=== PATIENT | female | born 1960 | race Caucasian/White ===

== ENCOUNTER 2016-11-13 08:36 | Emergency (ER) | payer OTHER, SELFPAY ==
[2016-11-13] MEDS ORDERED: Sodium Chloride 0.9% 1,000 ML ONE (08:48)
[2016-11-13] MEDS ORDERED: Ondansetron HCl/PF 4 MG/2 ML Vial ONE ×4 (09:00→11:28)
[2016-11-13] MEDS ORDERED: Metoprolol Tartrate 5 MG/5 ML VIAL ONE ×2 (09:17→09:30)
[2016-11-13 09:36] LABS: Band 4 % (5-11); Hematocrit 59.4 % (36.0-47.0); Mean Platelet Volume 8.2 fL (7.4-10.4); Neutrophil 71 % (42-75); Red Blood Cell (RBC) Count 6.79 mill/uL (4.20-5.40); White Blood Cell (WBC) Count 14.6 thou/uL (4.8-10.8)
[2016-11-13 09:38] LABS: ALT (SGPT) 28 U/L (0-55); AST (SGOT) 20 U/L (5-34); Alkaline Phosphatase 76 U/L (40-150); Anion Gap 19 mmol/L (10-20); BUN (Urea Nitrogen) 13 mg/dL (9.8-20.1); Bilirubin, Total 1.1 mg/dL (0.2-1.2); Calc. Creatinine Clearance 0 mL/min (70-130); Calcium 9.7 mg/dL (7.8-10.44); Carbon Dioxide 25 mmol/L (22-29); Chloride 99 mmol/L (98-107); Estimated GFR-MDRD 56; Globulin 3.9 g/dL (2.4-3.5); Protein, Total 8.8 g/dL (6.0-8.3)
[2016-11-13 09:40] LABS: Troponin I 0.012 ng/mL (< 0.028)
--- NOTE | 2016-11-13 10:11 | CT ---
NONCONTRAST HEAD CT HISTORY: Headache. Nausea and vomiting. COMPARISON: None. TECHNIQUE: A noncontrast head CT is performed from the skull base to the skull vertex. FINDINGS: No parenchymal hemorrhage. No extraaxial hematoma. No midline shift. The basilar cisterns are pat ent. Brain volume is age appropriate. Cortical valadez white matter differentiation is preserved. The ventricles and sulci are patent and symmetric. Minimal chronic small vessel ischemic changes of the white matter. The calvarium is intact. Adequate aeration of the sinuses and mastoid air cells. IMPRESSION: No acute intracranial process. POS: [facility]
[2016-11-13] MEDS ORDERED: Sodium Chloride 0.9% 500 ML ONE (10:59)
[2016-11-13] MEDS ORDERED: Mag-Al Plus 1200 MG/1200 MG/120 MG/30 ML UDCUP ONE (11:27)
[2016-11-13] MEDS ORDERED: Lidocaine Viscous Sol 2% 15 ml UD Cup ONE (11:28)
[2016-11-13] MEDS ORDERED: Promethazine HCl 25 MG/ML VIAL ONE (11:47)
[2016-11-13 11:56] LABS: Troponin I 0.011 ng/mL (< 0.028)
--- NOTE | 2016-11-13 11:58 | ERRECORD ---
[facility] EMERGENCY RECORD HPI HEADACHE (08:51 SHAN) CHIEF COMPLAINT: Patient presents for evaluation of headache, severe headache with vomiting since yesterday, hx of doing something very similar to this 25 years ago with hypertension, on 10 mg amlodipine daily but vomitin. HISTORIAN: History provided by patient, History provided by patient's spouse, Severe headache since yesterday. SEVERITY: Maximum severity of symptoms moderate, Currently symptoms are severe. ROS (08:53 SHAN) CONSTITUTIONAL: Negative constitutional review of systems. EYES: Negative eye review of systems. ENT: Negative ears, nose, throat review of systems. CARDIOVASCULAR: Negative cardiovascular review of systems. RESPIRATORY: Negative respiratory review of systems. GI: Historian reports nausea, reports vomiting. GENITOURINARY FEMALE: Negative genitourinary review of systems. MUSCULOSKELETAL: Negative musculoskeletal review of systems. SKIN: Negative skin review of systems. NEUROLOGIC: Negative neurologic review of systems, severe headache, bilateral frontal and with associated nausea. ENDOCRINE: Negative endocrine review of systems. NOTES: All systems reviewed, negative except as described above. PAST MEDICAL HISTORY (08:45 BDON) MEDICAL HISTORY: Notes: headache, Flu vaccine not up to date, Tetanus not up to date, Past medical history includes history of hypertension, which has been treated. FEMALE SURGICAL HISTORY: Surgical history of tubal ligation. PSYCHIATRIC HISTORY: No previous psychiatric history. SOCIAL HISTORY: Patient drinks socially, Patient denies drug use, Patient is a former tobacco user, smoked cigarettes, Patient quit smoking in the past year, Lives at home, alone. KNOWN ALLERGIES codeine sulfate: - headache, nausea CURRENT MEDICATIONS (08:47 BDON) amLODIPine: TABLET : Strength - 10 mg : ORAL Patient Dose: once a day. VITAL SIGNS VITAL SIGNS: BP: 209/84, Pulse: 89, Resp: 20, Temp: 98.5 (Oral), Pain: 10, O2 sat: 100, Time: 11/13/2016 09:04. (09:04 BDON) &a-1R&a+25V*p+0X*e0913G*c202B*c15G*c2P*p-0X&a-25V&a+1R Name: Brittnee Oseguera : 1960 F56 MedRec: [id number] AcctNum: [id number] Prepared: Katelyn Nov 13, 2016 13:29 by Interface Page 1 of 4 pMD [facility] EMERGENCY RECORD BP: 228/89, Pulse: 75, Resp: 18, O2 sat: 97 on Room Air, Time: 11/13/2016 09:30. (09:30 EPIE) BP: 226/96, Pulse: 70, Resp: 18, O2 sat: 91 on Room Air, Time: 11/13/2016 09:50. (09:50 EPIE) BP: 214/81, Pulse: 76, Resp: 18, Pain: 8, O2 sat: 96 on Room Air, Time: 11/13/2016 10:00. (10:00 EPIE) BP: 187/72, Pulse: 72, Resp: 17, O2 sat: 97 on Room Air, Time: 11/13/2016 10:15. (10:15 EPIE) BP: 199/85, Pulse: 72, Resp: 18, O2 sat: 98 on Room Air, Time: 11/13/2016 10:30. (10:30 EPIE) BP: 173/86, Pulse: 69, Resp: 18, Pain: 4, O2 sat: 98, Time: 11/13/2016 11:15. (11:15 BDON) BP: 193/115, Pulse: 90, Resp: 18, O2 sat: 97 on Room Air, Time: 11/13/2016 12:00. (12:00 EPIE) PHYSICAL EXAM (08:53 SHAN) CONSTITUTIONAL: Patient afebrile, Pulse normal, Blood pressure normal, Respiratory rate normal, Patient appears non toxic, Patient appears in marked acute pain, Patient alert and oriented to person, place and time. Specifically denies chest pain. HEAD: Head exam included findings of head atraumatic, normocephalic. EYES: Eye exam normal, Eye exam included findings of eyelids normal to inspection, Pupils equally round and reactive to light, Extraocular muscles intact. ENT: ENT exam normal, Pharynx exam normal, Uvula exam normal, Tonsil exam normal. NECK: Neck exam normal, Neck exam included findings of normal range of motion, Trachea midline. RESPIRATORY CHEST: Respiratory and chest exam normal, Chest exam included findings of chest movement symmetrical, Chest expansion equal, Percussion normal. CARDIOVASCULAR: Cardiovascular assessment normal, Cardiovascular exam included findings of heart rate regular rate and rhythm, Heart sounds normal. ABDOMEN FEMALE: Abdominal exam normal, Abdominal exam included findings of abdomen nontender, Bowel sounds normal. BACK: Back exam normal. UPPER EXTREMITY: Upper extremity exam normal, Upper extremity exam included findings of inspection normal, Range of motion normal. LOWER EXTREMITY: Lower extremity exam normal, Lower extremity exam included findings of inspection normal, Range of motion normal. NEURO: Neuro exam normal. SKIN: Skin exam normal. PSYCHIATRIC: Psychiatric exam normal, Psychiatric exam included findings of patient oriented to person place and time, Normal affect, Judgment normal, Insight normal. MEDICATION ADMINISTRATION SUMMARY &a-1R&a+25V*p+0X*v2197M*c202B*c15G*c2P*p-0X&a-25V&a+1R Name: Brittnee Oseguera : 1960 F56 MedRec: [id number] AcctNum: [id number] Prepared: Katelyn Nov 13, 2016 13:29 by Interface Page 2 of 4 pMD [facility] EMERGENCY RECORD Drug Name: hydrALAZINE injection, Dose Ordered: 10 mg, Route: IV Push, Status: Given, Time: 12:12 11/13/2016, Drug Name: Phenergan injection, Dose Ordered: 12.5 mg, Route: IV Push, Status: Given, Time: 11:52 11/13/2016, Drug Name: Zofran intravenous, Dose Ordered: 4 mg, Route: IV Push, Status: Given, Time: 11:42 11/13/2016, Drug Name: GI COCKTAIL, Dose Ordered: 40 mL, Route: Oral, Status: Given, Time: 11:32 11/13/2016, Drug Name: aspirin oral, Dose Ordered: 1 tab(s), Route: Oral, Status: Given, Time: 11:32 11/13/2016, Drug Name: hydrALAZINE injection, Dose Ordered: 10 mg, Route: IV Push, Status: Given, Time: 11:06 11/13/2016, Drug Name: Normal Saline, Dose Ordered: 30 mL, Route: IV Fluid Infusion, Status: Given, Time: 11:00 11/13/2016, Drug Name: morphine (PF) intravenous, Dose Ordered: 4 mg, Route: IV Push, Status: Given, Time: 10:51 11/13/2016, Drug Name: hydrALAZINE injection, Dose Ordered: 10 mg, Route: IV Push, Status: Given, Time: 09:56 11/13/2016, Drug Name: Lopressor intravenous, Dose Ordered: 5 mg, Route: IV Push, Status: Given, Time: 09:34 11/13/2016, Drug Name: Lopressor intravenous, Dose Ordered: 5 mg, Route: IV Push, Status: Given, Time: 09:25 11/13/2016, Drug Name: Zofran intravenous, Dose Ordered: 4 mg, Route: IV Push, Status: Given, Time: 09:25 11/13/2016, Drug Name: morphine (PF) intravenous, Dose Ordered: 4 mg, Route: IV Push, Status: Given, Time: 09:11 11/13/2016, Drug Name: Normal Saline, Dose Ordered: 1 L, Route: IV Fluid Infusion, Status: Given, Time: 09:10 11/13/2016, Drug Name: Zofran intravenous, Dose Ordered: 4 mg, Route: IV Push, Status: Given, Time: 09:09 11/13/2016, Detailed record available in Medication Service section. DOCTOR NOTES TEXT: Adult female adm with severe right sided headache; hx of migraine but not active in some time; had a similar episode about 20 years ago. Also with chronic hypertension. On amlodipine 10 mg po daily but vomited up her dose today. (10:46 OLGA) When patient rolled over, developed some chest pain, repeat ekg and enzymes ordered; ekg good. Ordered triple mix and aspirin. Discussed with customer solutions representative local provider, he agrees that she should be observed but feels it should be where consultants are available. (11:14 OLGA) Dr. Be is accepting, at [place]. Discussed labs and meds. (11:39 OLGA) Also discussed question of some degree of polycythemia with patient and physician. (13:21 OLGA) DATA REVIEWED: Lab data reviewed, Xray data reviewed, Reviewed EKG. (11:39 OLGA) Lab data reviewed, Xray data reviewed, Reviewed EKG. (13:21 OLGA) &a-1R&a+25V*p+0X*x9270S*c202B*c15G*c2P*p-0X&a-25V&a+1R Name: Brittnee Oseguera : 1960 F56 MedRec: [id number] AcctNum: [id number] Prepared: Katelyn Nov 13, 2016 13:29 by Interface Page 3 of 4 pMD [facility] EMERGENCY RECORD PROBLEM LIST No recorded problems DIAGNOSIS (11:41 SHAN) FINAL: PRIMARY: hypertensive emergency, ADDITIONAL: atypical chest pain, hx of migraine and chronic hypertension, severe headache and nausea. PRESCRIPTION No recorded prescriptions DISPOSITION PATIENT: Disposition Type: Transfer, Disposition: Transfer to [facility]. (11:41 OLGA) Patient left the department. (12:31 THEODORE) Rojas: BEBE=NADEEM Ryan, Shiela JAIMES=NADEEM Moulton, Trin[place] ESPINOZA=MD Billy, Don &a-1R&a+25V*p+0X*k9714Q*c202B*c15G*c2P*p-0X&a-25V&a+1R Name: Oseguera Brittnee A : 1960 F56 MedRec: [id number] AcctNum: [id number] Prepared: Katelyn Nov 13, 2016 13:29 by Interface Page 4 of 4 pMD MTDD
--- NOTE | 2016-11-13 11:59 | PICIS ---
[facility] EMERGENCY RECORD TRIAGE (08:39 BDON) TRIAGE NOTES: Worst headache ever. (08:39 BDON) PATIENT: NAME: Brittnee Oseguera, AGE: 56, GENDER: female, : Mon1960, TIME OF GREET: Sun Nov 13, 2016 08:36, PREFERRED LANGUAGE: Malian, ETHNICITY: Not or , ECODE BILLING MAP: [facility], SSN: [id number], Zip Code: [address], KG WEIGHT: 74.84, PHONE: , , , PERSON ID: [id number], PCP: Michelle RAI LUKE. (08:39 BDON) COMPLAINT: POSSIBLE CARDIAC ISSUE,REALLY BAD HEADACHE. (08:39 BDON) ADMISSION: URGENCY: 2 Emergent, ADMISSION SOURCE: Home, TRANSPORT: Walk-in, BED: TRIAGE. (08:39 BDON) ASSESSMENT: Assessment: Worse headache of life, bilateral temporal and forehead pain, happened about 25 years ago but was due to hypertension. Vomited up hypertension medication, Symptoms began yesterday. (08:45 BDON) LMP: LMP: Menopause. (08:45 BDON) TREATMENTS IN PROGRESS: Treatments given Prehospital: none. (08:45 BDON) PROVIDERS: TRIAGE NURSE: Shiela Rayn RN. (08:39 BDON) KNOWN ALLERGIES codeine sulfate: - headache, nausea CURRENT MEDICATIONS (08:47 BDON) amLODIPine: TABLET : Strength - 10 mg : ORAL Patient Dose: once a day. VITAL SIGNS VITAL SIGNS: BP: 209/84, Pulse: 89, Resp: 20, Temp: 98.5 (Oral), Pain: 10, O2 sat: 100, Time: 11/13/2016 09:04. (09:04 BDON) BP: 228/89, Pulse: 75, Resp: 18, O2 sat: 97 on Room Air, Time: 11/13/2016 09:30. (09:30 EPIE) BP: 226/96, Pulse: 70, Resp: 18, O2 sat: 91 on Room Air, Time: 11/13/2016 09:50. (09:50 EPIE) BP: 214/81, Pulse: 76, Resp: 18, Pain: 8, O2 sat: 96 on Room Air, Time: 11/13/2016 10:00. (10:00 EPIE) BP: 187/72, Pulse: 72, Resp: 17, O2 sat: 97 on Room Air, Time: 11/13/2016 10:15. (10:15 EPIE) BP: 199/85, Pulse: 72, Resp: 18, O2 sat: 98 on Room Air, Time: 11/13/2016 10:30. (10:30 EPIE) BP: 173/86, Pulse: 69, Resp: 18, Pain: 4, O2 sat: 98, Time: 11/13/2016 11:15. (11:15 BDON) BP: 193/115, Pulse: 90, Resp: 18, O2 sat: 97 on Room Air, Time: 11/13/2016 12:00. (12:00 EPIE) NURSING ASSESSMENT: FALL RISK (11:32 EPIE) &a-1R&a+25V*p+0X*q1355R*c202B*c15G*c2P*p-0X&a-25V&a+1R Name: Brittnee Oseguera : 1960 F56 MedRec: [id number] AcctNum: [id number] Prepared: Katelyn Nov 13, 2016 13:29 by Interface Page 1 of 14 pMD [facility] EMERGENCY RECORD FALL RISK: Fall risk assessment findings include: no history of falls (0), No bed rest greater than 2 days (0), No use of level of consciousness altering agents with mentation or cognitive changes (0), Change in blood pressure (1), No sensory deficits (0), Impaired mobility (3), Neurologic diagnosis (3), No elimination problems (0), No confusion (0), Total score 7, Fall risk. NURSING ASSESSMENT: NEURO (08:50 BDON) GCS: (6) Obeying command:, (5) Orientated:, (4) Spontaneous eye opening., Result: 15. CONSTITUTIONAL: Patient arrives, via hospital wheelchair, History obtained from, family member: , Patient appears, in distress due to pain, Patient cooperative, Patient alert, Oriented to person, place and time, Skin warm, Skin dry, Skin, pale in color. PAIN: to the frontal region, to the left orbit, to the right orbit, to the left parietal region, to the right parietal region, Pain level 10 Hurts Worst, using faces pain scoring. NEURO: Able to close eyes, Face symmetrical, Speech normal, no facial numbness, no swelling, Associated with dizziness described as, Associated with vomiting, currently. ENT: no complaint of congestion. SAFETY: Side rails up, Cart/Stretcher in lowest position, Family at bedside, Hospital ID band on, Patient in view of the nursing station. NURSING ASSESSMENT: SKIN (11:32 EPIE) SKIN: Skin assessment findings include skin warm, Skin dry, Skin normal in color, Notes: pt has bilateral nipple piercings. NURSING PROCEDURE: HVAC COMMERCIAL SALESPERSON (09:10 EPIE) HVAC COMMERCIAL SALESPERSON: Patient placed on vehicle monitor technician, Patient placed on non-invasive blood pressure monitor, Patient placed on continuous pulse oximetry, Adult/pediatric oxisensor applied. FOLLOW-UP: After procedure, alarms set and on, After procedure, patient tolerating monitoring. NURSING PROCEDURE: EKG CHART EK lead EKG performed on the left chest, done by Shiela SILVER, first EKG. (09:12 EPIE) EKG indicated for complaint of chest pain, 12 lead EKG performed on the left chest, wrong time placed in "my tasks" 2nd EKG done at 11:11. (11:11 BDON) FOLLOW-UP: After procedure, EKG for interpretation given to Dr. Billy PEMBERTON. (09:12 EPIE) NURSING PROCEDURE: IV (09:15 EPIE) &a-1R&a+25V*p+0X*i0688I*c202B*c15G*c2P*p-0X&a-25V&a+1R Name: Brittnee Oseguera : 1960 F56 MedRec: [id number] AcctNum: [id number] Prepared: Katelyn Nov 13, 2016 13:29 by Interface Page 2 of 14 pMD [facility] EMERGENCY RECORD IV SITE 1: IV established, to the left antecubital, using a 20 gauge catheter, in one attempt, IV site prepped with chloroprep, Saline lock established, Flushed with normal saline (mls): 10, Labs drawn at time of placement, labeled in the presence of the patient and sent to lab. FOLLOW-UP SITE 1: After procedure, no drainage at IV site, After procedure, no swelling at IV site, After procedure, no redness at IV site. NURSING PROCEDURE: NURSE NOTES NURSES NOTES: Notes: Sitting in chair in waiting room, bending over, states worse headache in 25 years which was due to hypertension. at side. Brought to room, [facility] called to take to CT. (08:41 BDON) Notes: continues to have headache, no vomiting but intermittent nausea. (09:15 BDON) Notes: Headache, lights turned off, at bedside, intermittent nausea Education given related to medication. (09:40 BDON) Patient is improving, Patient states decreased pain. (10:14 BDON) Patient is improving, Notes: incontinent of urine, sheets changed. (10:05 BDON) Notes: voided in bedpan, intermittent nausea but headache is improving. (10:55 BDON) Notes: Mid sternal chest pain, physician made aware. (11:09 BDON) Notes: Aware of need for transfer. (11:20 BDON) Notes: vomited and placed on bed kimball. (11:45 BDON) Notes: medicated for nausea. (11:53 BDON) Warm blanket given to patient. (12:11 BDON) Notes: decrease nausea. (12:12 BDON) NURSING PROCEDURE: TRANSFER (12:04 BDON) TRANSFER: Reason for transfer need for specialized care, Diagnosis: Chest pain, hypertension, migraine, Accepting institution: [facility], Accepting physician: Jak, Referring physician: Billy, Transported by urgent ambulance, Waiting on EMS to arrive, Report called to receiving facility, [facility], Provided opportunity to answer questions. NURSING PROCEDURE: TRANSPORT TO TESTS (08:59 KHER) TRANSPORT TO TESTS: Patient transported to CT scan, via cart, Accompanied by x-ray natural resource technician, Patient arrived in location at 0840, Patient departed location at 0850. FOLLOW-UP: After procedure, patient returned to emergency department. ORDER DETAILS &a-1R&a+25V*p+0X*u1932E*c202B*c15G*c2P*p-0X&a-25V&a+1R Name: Brittnee Oseguera : 1960 F56 MedRec: [id number] AcctNum: [id number] Prepared: Katelyn Nov 13, 2016 13:29 by Interface Page 3 of 14 D [facility] EMERGENCY RECORD Order Name: HVAC COMMERCIAL SALESPERSON ED, Status: Done, Time: 09:14 11/13/2016, User: BEBE, - Ordered for: MD Cervantes Stanley, - Entered by: MD Cervantes Stanley - Katelyn Nov 13, 2016 08:48, - Quantity: 1, Order Name: Cardiac Profile w/CKMB & Troponin - I, Status: Active, Time: 11:06 11/13/2016, User: OLGA, - Ordered for: MD Cervantes Stanley, - Entered by: MD Cervantes Stanley - Katelyn Nov 13, 2016 11:06, - Quantity: 1, Order Name: Cardiac Profile w/CKMB & Troponin - I, Status: Active, Time: 08:48 11/13/2016, User: OLGA, - Ordered for: MD Cervantes Stanley, - Entered by: MD Cervantes Stanley - Katelyn Nov 13, 2016 08:48, - Quantity: 1, Order Name: CBC with Differential, Status: Active, Time: 08:48 11/13/2016, User: OLGA, - Ordered for: MD Cervantes Stanley, - Entered by: MD Cervantes Stanley - Katelyn Nov 13, 2016 08:48, - Quantity: 1, Order Name: CBC with Differential, Status: Active, Time: 13:29 11/13/2016, User: OLGA, - Ordered for: MD Cervantes Stanley, - Entered by: MD Cervantes Stanley - Katelyn Nov 13, 2016 13:29, - Quantity: 1, Order Name: Comprehensive Metabolic Panel, Status: Active, Time: 13:29 11/13/2016, User: OLGA, - Ordered for: MD Cervantes Stanley, - Entered by: MD Cervantes Stanley - Katelyn Nov 13, 2016 13:29, - Quantity: 1, Order Name: Comprehensive Metabolic Panel, Status: Active, Time: 08:48 11/13/2016, User: OLGA, - Ordered for: MD Cervantes Stanley, - Entered by: MD Cervantes Stanley - Katelyn Nov 13, 2016 08:48, - Quantity: 1, Order Name: CT Brain WO Con, Status: Active, Time: 08:40 11/13/2016, User: BEBE, - Ordered for: MD Cervantes Stanley, - Entered by: NADEEM Ryan, Shiela - Katelyn Nov 13, 2016 08:40, - Quantity: 1, Order Name: Culture & GS, Bacterial/Wound, Status: Active, Time: 13:29 11/13/2016, User: OLGA, - Ordered for: MD Cervantes Stanley, - Entered by: MD Cervantes Stanley - Katelyn Nov 13, 2016 13:29, - Quantity: 1, Order Name: EKG 12 Lead in Emergency Room, Status: Active, Time: 11:06 11/13/2016, User: OLGA, - Ordered for: MD Cervantes Stanley, - Entered by: MD Cervantes Stanley - Katelyn Nov 13, 2016 11:06, - Quantity: 1, &a-1R&a+25V*p+0X*e2569Y*c202B*c15G*c2P*p-0X&a-25V&a+1R Name: Brittnee Oseguera : 1960 F56 MedRec: [id number] AcctNum: [id number] Prepared: Katelyn Nov 13, 2016 13:29 by Interface Page 4 of 14 D [facility] EMERGENCY RECORD Order Name: EKG 12 Lead in Emergency Room, Status: Active, Time: 08:48 11/13/2016, User: OLGA, - Ordered for: MD Cervantes Stanley, - Entered by: MD Cervantes Stanley - Katelyn Nov 13, 2016 08:48, - Quantity: 1, Order Name: EPOC-LACTATE, Status: Active, Time: 13:29 11/13/2016, User: OLGA, - Ordered for: MD Cervantes Stanley, - Entered by: MD Cervantes Stanley - Sun Nov 13, 2016 13:29, - Quantity: 1, Order Name: SALINE LOCK, Status: Done, Time: 09:12 11/13/2016, User: EPIE, - Ordered for: MD Cervantes Stanley, - Entered by: MD Cervantes Stanley - Katelyn Nov 13, 2016 08:48, - Quantity: 1. MEDICATION ADMINISTRATION SUMMARY Drug Name: hydrALAZINE injection, Dose Ordered: 10 mg, Route: IV Push, Status: Given, Time: 12:12 11/13/2016, Drug Name: Phenergan injection, Dose Ordered: 12.5 mg, Route: IV Push, Status: Given, Time: 11:52 11/13/2016, Drug Name: Zofran intravenous, Dose Ordered: 4 mg, Route: IV Push, Status: Given, Time: 11:42 11/13/2016, Drug Name: GI COCKTAIL, Dose Ordered: 40 mL, Route: Oral, Status: Given, Time: 11:32 11/13/2016, Drug Name: aspirin oral, Dose Ordered: 1 tab(s), Route: Oral, Status: Given, Time: 11:32 11/13/2016, Drug Name: hydrALAZINE injection, Dose Ordered: 10 mg, Route: IV Push, Status: Given, Time: 11:06 11/13/2016, Drug Name: Normal Saline, Dose Ordered: 30 mL, Route: IV Fluid Infusion, Status: Given, Time: 11:00 11/13/2016, Drug Name: morphine (PF) intravenous, Dose Ordered: 4 mg, Route: IV Push, Status: Given, Time: 10:51 11/13/2016, Drug Name: hydrALAZINE injection, Dose Ordered: 10 mg, Route: IV Push, Status: Given, Time: 09:56 11/13/2016, Drug Name: Lopressor intravenous, Dose Ordered: 5 mg, Route: IV Push, Status: Given, Time: 09:34 11/13/2016, Drug Name: Lopressor intravenous, Dose Ordered: 5 mg, Route: IV Push, Status: Given, Time: 09:25 11/13/2016, Drug Name: Zofran intravenous, Dose Ordered: 4 mg, Route: IV Push, Status: Given, Time: 09:25 11/13/2016, Drug Name: morphine (PF) intravenous, Dose Ordered: 4 mg, Route: IV Push, Status: Given, Time: 09:11 11/13/2016, Drug Name: Normal Saline, Dose Ordered: 1 L, Route: IV Fluid Infusion, Status: Given, Time: 09:10 11/13/2016, Drug Name: Zofran intravenous, Dose Ordered: 4 mg, Route: IV Push, Status: Given, Time: 09:09 11/13/2016, Detailed record available in Medication Service section. &a-1R&a+25V*p+0X*u8132C*c202B*c15G*c2P*p-0X&a-25V&a+1R Name: Brittnee Oseguera : 1960 F56 MedRec: [id number] AcctNum: [id number] Prepared: MonNov 13, 2016 13:29 by Interface Page 5 of 14 pMD [facility] EMERGENCY RECORD MEDICATION SERVICE aspirin oral: Order: aspirin oral (aspirin) - Dose: 1 tab(s) : Oral Schedule: Now Ordered by: Don Cervantes MD Entered by: MD Katelyn Mooney Nov 13, 2016 11:13 Documented as given by: Shiela Ryan RN [place] Nov 13, 2016 11:32 Patient, Medication, Dose, Route and Time verified prior to administration. Site: Medication administered P.O. GI COCKTAIL: Order: GI COCKTAIL - Dose: 40 mL : Oral Lidocaine Viscous (lidocaine HCl) [10 mL] MAG-AL (magnesium hydroxide/aluminum hydroxide) [30 mL] Ordered by: Don Cervantes MD Entered by: MD Katelyn Mooney Nov 13, 2016 11:12 Documented as given by: Shiela Ryan RN [place] Nov 13, 2016 11:32 Patient, Medication, Dose, Route and Time verified prior to administration. Site: Medication administered P.O. hydrALAZINE injection: Order: hydrALAZINE injection (hydralazine HCl) - Dose: 10 mg : IV Push Schedule: Now Ordered by: Don Cervantes MD Entered by: MD Katelyn Mooney Nov 13, 2016 09:53 Documented as given by: Shiela Ryan RN [place] Nov 13, 2016 09:56 Patient, Medication, Dose, Route and Time verified prior to administration. Amount given: 10 mg, IV SITE #1 IVP, Patient in position of comfort, Side rails up, Cart in lowest position, Family at bedside. : Follow Up : _IV SITE #1:_, iv push. (10:00 BDON) hydrALAZINE injection: Order: hydrALAZINE injection (hydralazine HCl) - Dose: 10 mg : IV Push Schedule: Now Ordered by: Don Cervantes MD Entered by: MD Katelyn Mooney Nov 13, 2016 10:56 Documented as given by: NADEEM Lind Nov 13, 2016 11:06 Patient, Medication, Dose, Route and Time verified prior to administration. Amount given: 10 mg, Catheter placement confirmed via flush prior to administration, IV site without signs or symptoms of infiltration during medication administration, No swelling during administration, No drainage during administration, IV flushed after administration, Correct patient, time, route, dose and medication confirmed prior to administration, Patient advised of actions and side-effects prior to administration, Allergies confirmed and medications reviewed prior to administration, Patient in position of comfort, Side rails up, Cart in lowest position, Family at bedside, slow iv push. hydrALAZINE injection: Order: hydrALAZINE injection (hydralazine HCl) - Dose: 10 mg : IV Push Schedule: Now &a-1R&a+25V*p+0X*d4862G*c202B*c15G*c2P*p-0X&a-25V&a+1R Name: Brittnee Oseguera : 1960 F56 MedRec: [id number] AcctNum: [id number] Prepared: MonNov 13, 2016 13:29 by Interface Page 6 of 14 D [facility] EMERGENCY RECORD Ordered by: Don Cervantes MD Entered by: MD Katelyn Mooney Nov 13, 2016 11:42 Documented as given by: NADEEM Lind Nov 13, 2016 12:12 Patient, Medication, Dose, Route and Time verified prior to administration. Amount given: 10 mg. Lopressor intravenous: Order: Lopressor intravenous (metoprolol tartrate) - Dose: 5 mg : IV Push Schedule: Now Ordered by: Don Cervantes MD Entered by: MD Katelyn Mooney Nov 13, 2016 09:11 Documented as given by: NADEEM Lind Nov 13, 2016 09:25 Patient, Medication, Dose, Route and Time verified prior to administration. IV SITE #1 IVP, iv push. : Follow Up : _IV SITE #1:_, slow iv push. (09:30 BDON) Lopressor intravenous: Order: Lopressor intravenous (metoprolol tartrate) - Dose: 5 mg : IV Push Schedule: Now Ordered by: Don Cervantes MD Entered by: Don Cervantes MD [place] Nov 13, 2016 09:30 Documented as given by: Shiela Ryan RN [place] Nov 13, 2016 09:34 Patient, Medication, Dose, Route and Time verified prior to administration. IV SITE #1 IVP, Patient in position of comfort, Side rails up, Cart in lowest position, Family at bedside. : Follow Up : No signs or symptoms of allergic reaction noted, _IV SITE #1:_, slow iv push. (09:39 BDON) morphine (PF) intravenous: Order: morphine (PF) intravenous (morphine sulfate/preservative free) - Dose: 4 mg : IV Push POTENTIAL ALLERGY REACTION: 'codeine sulfate [codeine/codeine sulfate]' - Benefits outweigh risks Schedule: Now Ordered by: Don Cervantes MD Entered by: Don Cervantes MD [place] Nov 13, 2016 09:02 Documented as given by: Trinidad Moulton RN [place] Nov 13, 2016 09:11 Patient, Medication, Dose, Route and Time verified prior to administration. Amount given: 4mg, IV SITE #1 IVP, initial medication, Slowly, Awake and alert- acceptable, Catheter placement confirmed via flush prior to administration, IV site without signs or symptoms of infiltration during medication administration, No swelling during administration, No drainage during administration, IV flushed after administration, Correct patient, time, route, dose and medication confirmed prior to administration, Patient advised of actions and side-effects prior to administration, Allergies confirmed and medications reviewed prior to administration, Pt states she has had this before and never had a reaction. morphine (PF) intravenous: Order: morphine (PF) intravenous (morphine sulfate/preservative free) - Dose: 4 mg : IV Push &a-1R&a+25V*p+0X*o9231I*c202B*c15G*c2P*p-0X&a-25V&a+1R Name: Ana Rosa Brittnee A : 1960 F56 MedRec: [id number] AcctNum: [id number] Prepared: MonNov 13, 2016 13:29 by Interface Page 7 of 14 pMD [facility] EMERGENCY RECORD Schedule: Now Ordered by: Don Cervantes MD Entered by: Don Cervantes MD [place] Nov 13, 2016 10:45 Documented as given by: Shiela Ryan RN [place] Nov 13, 2016 10:51 Patient, Medication, Dose, Route and Time verified prior to administration. Amount given: 4 mg, Catheter placement confirmed via flush prior to administration, IV site without signs or symptoms of infiltration during medication administration, No swelling during administration, No drainage during administration, IV flushed after administration, Correct patient, time, route, dose and medication confirmed prior to administration, Patient advised of actions and side-effects prior to administration, Allergies confirmed and medications reviewed prior to administration, Patient in position of comfort, Side rails up, Cart in lowest position, Family at bedside. : Follow Up : No signs or symptoms of allergic reaction noted, iv push. (10:52 BDON) Normal Saline: Order: Normal Saline (0.9 % sodium chloride) - Dose: 1 L : IV Fluid Infusion Schedule: Bolus Ordered by: Don Cervantes MD Entered by: Don Cervantes MD [place] Nov 13, 2016 08:56 Documented as given by: Trinidad Moulton RN [place] Nov 13, 2016 09:10 Patient, Medication, Dose, Route and Time verified prior to administration. Amount given: 1L, IV SITE #1 IV fluids established for hydration, IV SITE #1 into left antecubital, IV SITE #1 1st bag hung, amount 1 Liter hung, via primary tubing, Catheter placement confirmed via flush prior to administration, IV site without signs or symptoms of infiltration during medication administration, No swelling during administration, No drainage during administration, IV flushed after administration, Correct patient, time, route, dose and medication confirmed prior to administration, Patient advised of actions and side-effects prior to administration, Allergies confirmed and medications reviewed prior to administration. : Follow Up : No signs or symptoms of allergic reaction noted, _IV SITE #1:_, IV fluid infusion discontinued, on [place] Nov 13, 2016 09:43, 35 minutes, . (09:48 BDON) Normal Saline: Order: Normal Saline (0.9 % sodium chloride) - Dose: 30 mL : IV Fluid Infusion Schedule: Now Ordered by: Don Cervantes MD Entered by: NADEEM Lind Nov 13, 2016 11:38 Documented as given by: NADEEM Lind Nov 13, 2016 11:00 Patient, Medication, Dose, Route and Time verified prior to administration. IV SITE #1 IV fluids established for hydration. Phenergan injection: Order: Phenergan injection (promethazine HCl) - Dose: 12.5 mg : IV Push Schedule: Now &a-1R&a+25V*p+0X*d0810B*c202B*c15G*c2P*p-0X&a-25V&a+1R Name: Brittnee Oseguera : 1960 F56 MedRec: [id number] AcctNum: [id number] Prepared: Katelyn Nov 13, 2016 13:29 by Interface Page 8 of 14 pMD [facility] EMERGENCY RECORD Ordered by: Don Cervantes MD Entered by: MD Katelyn Mooney Nov 13, 2016 11:45 Documented as given by: NADEEM Lind Nov 13, 2016 11:52 Patient, Medication, Dose, Route and Time verified prior to administration. Amount given: 12.5 mg, Catheter placement confirmed via flush prior to administration, IV site without signs or symptoms of infiltration during medication administration, No swelling during administration, No drainage during administration, IV flushed after administration, Correct patient, time, route, dose and medication confirmed prior to administration, Patient advised of actions and side-effects prior to administration, Allergies confirmed and medications reviewed prior to administration, iv push. Zofran intravenous: Order: Zofran intravenous (ondansetron HCl) - Dose: 4 mg : IV Push Schedule: Now Ordered by: Don Cervantes MD Entered by: MD Katelyn Mooney Nov 13, 2016 08:50 Documented as given by: NADEEM Magdaleno Nov 13, 2016 09:09 Patient, Medication, Dose, Route and Time verified prior to administration. Amount given: 4mg, IV SITE #1 IVP, initial medication, Slowly, Catheter placement confirmed via flush prior to administration, IV site without signs or symptoms of infiltration during medication administration, No swelling during administration, No drainage during administration, IV flushed after administration, Correct patient, time, route, dose and medication confirmed prior to administration, Patient advised of actions and side-effects prior to administration, Allergies confirmed and medications reviewed prior to administration. Zofran intravenous: Order: Zofran intravenous (ondansetron HCl) - Dose: 4 mg : IV Push Schedule: Now Ordered by: Don Cervantes MD Entered by: MD Katelyn Mooney Nov 13, 2016 09:10 Documented as given by: Shiela Ryan RN [place] Nov 13, 2016 09:25 Patient, Medication, Dose, Route and Time verified prior to administration. : Follow Up : iv push. (09:27 BDON) Zofran intravenous: Order: Zofran intravenous (ondansetron HCl) - Dose: 4 mg : IV Push Schedule: Now Ordered by: Don Cervantes MD Entered by: MD Katelyn Mooney Nov 13, 2016 10:56 Documented as given by: Shiela Ryan RN [place] Nov 13, 2016 11:42 Patient, Medication, Dose, Route and Time verified prior to administration. IV SITE #1 IVP. HPI HEADACHE (08:51 OLGA) CHIEF COMPLAINT: Patient presents for evaluation of &a-1R&a+25V*p+0X*p2860D*c202B*c15G*c2P*p-0X&a-25V&a+1R Name: Brittnee Oseguera : 1960 F56 MedRec: [id number] AcctNum: [id number] Prepared: Katelyn Nov 13, 2016 13:29 by Interface Page 9 of 14 pMD [facility] EMERGENCY RECORD headache, severe headache with vomiting since yesterday, hx of doing something very similar to this 25 years ago with hypertension, on 10 mg amlodipine daily but vomitin. HISTORIAN: History provided by patient, History provided by patient's spouse, Severe headache since yesterday. SEVERITY: Maximum severity of symptoms moderate, Currently symptoms are severe. ROS (08:53 SHAN) CONSTITUTIONAL: Negative constitutional review of systems. EYES: Negative eye review of systems. ENT: Negative ears, nose, throat review of systems. CARDIOVASCULAR: Negative cardiovascular review of systems. RESPIRATORY: Negative respiratory review of systems. GI: Historian reports nausea, reports vomiting. GENITOURINARY FEMALE: Negative genitourinary review of systems. MUSCULOSKELETAL: Negative musculoskeletal review of systems. SKIN: Negative skin review of systems. NEUROLOGIC: Negative neurologic review of systems, severe headache, bilateral frontal and with associated nausea. ENDOCRINE: Negative endocrine review of systems. NOTES: All systems reviewed, negative except as described above. PAST MEDICAL HISTORY (08:45 BDON) MEDICAL HISTORY: Notes: headache, Flu vaccine not up to date, Tetanus not up to date, Past medical history includes history of hypertension, which has been treated. FEMALE SURGICAL HISTORY: Surgical history of tubal ligation. PSYCHIATRIC HISTORY: No previous psychiatric history. SOCIAL HISTORY: Patient drinks socially, Patient denies drug use, Patient is a former tobacco user, smoked cigarettes, Patient quit smoking in the past year, Lives at home, alone. PHYSICAL EXAM (08:53 SHAN) CONSTITUTIONAL: Patient afebrile, Pulse normal, Blood pressure normal, Respiratory rate normal, Patient appears non toxic, Patient appears in marked acute pain, Patient alert and oriented to person, place and time. Specifically denies chest pain. HEAD: Head exam included findings of head atraumatic, normocephalic. EYES: Eye exam normal, Eye exam included findings of eyelids normal to inspection, Pupils equally round and reactive to light, Extraocular muscles intact. ENT: ENT exam normal, Pharynx exam normal, Uvula exam normal, Tonsil exam normal. NECK: Neck exam normal, Neck exam included findings of normal &a-1R&a+25V*p+0X*q7043E*c202B*c15G*c2P*p-0X&a-25V&a+1R Name: Brittnee Oseguera : 1960 F56 MedRec: [id number] AcctNum: [id number] Prepared: Katelyn Nov 13, 2016 13:29 by Interface Page 10 of 14 pMD [facility] EMERGENCY RECORD range of motion, Trachea midline. RESPIRATORY CHEST: Respiratory and chest exam normal, Chest exam included findings of chest movement symmetrical, Chest expansion equal, Percussion normal. CARDIOVASCULAR: Cardiovascular assessment normal, Cardiovascular exam included findings of heart rate regular rate and rhythm, Heart sounds normal. ABDOMEN FEMALE: Abdominal exam normal, Abdominal exam included findings of abdomen nontender, Bowel sounds normal. BACK: Back exam normal. UPPER EXTREMITY: Upper extremity exam normal, Upper extremity exam included findings of inspection normal, Range of motion normal. LOWER EXTREMITY: Lower extremity exam normal, Lower extremity exam included findings of inspection normal, Range of motion normal. NEURO: Neuro exam normal. SKIN: Skin exam normal. PSYCHIATRIC: Psychiatric exam normal, Psychiatric exam included findings of patient oriented to person place and time, Normal affect, Judgment normal, Insight normal. EVENTS TRANSFER: Triage to Emergency Triage. (Katelyn Nov 13, 2016 08:39 BDON) Emergency Triage to Emergency Room -02. (08:40 BDON) Removed from Emergency Emergency Room -02. (12:31 EPIE) DOCTOR NOTES TEXT: Adult female adm with severe right sided headache; hx of migraine but not active in some time; had a similar episode about 20 years ago. Also with chronic hypertension. On amlodipine 10 mg po daily but vomited up her dose today. (10:46 SHAN) When patient rolled over, developed some chest pain, repeat ekg and enzymes ordered; ekg good. Ordered triple mix and aspirin. Discussed with electronic calibration technician local provider, he agrees that she should be observed but feels it should be where consultants are available. (11:14 SHAN) Dr. Be is accepting, at [facility]. Discussed labs and meds. (11:39 SHAN) Also discussed question of some degree of polycythemia with patient and physician. (13:21 SHAN) DATA REVIEWED: Lab data reviewed, Xray data reviewed, Reviewed EKG. (11:39 SHAN) Lab data reviewed, Xray data reviewed, Reviewed EKG. (13:21 SHAN) PROBLEM LIST No recorded problems DIAGNOSIS (11:41 SHAN) FINAL: PRIMARY: hypertensive emergency, ADDITIONAL: atypical chest pain, hx of migraine and chronic hypertension, &a-1R&a+25V*p+0X*p8789C*c202B*c15G*c2P*p-0X&a-25V&a+1R Name: Brittnee Oseguera : 1960 F56 MedRec: [id number] AcctNum: [id number] Prepared: Katelyn Nov 13, 2016 13:29 by Interface Page 11 of 14 pMD [facility] EMERGENCY RECORD severe headache and nausea. DISPOSITION PATIENT: Disposition Type: Transfer, Disposition: Transfer to [facility]. (11:41 SHAN) Patient left the department. (12:31 EPIE) PRESCRIPTION No recorded prescriptions IMAGING *EKG: Image captured from scanner. (11:22 BDON) Image captured from scanner. (11:22 BDON) *MEMORANDUM OF TRANSFER: Image captured from scanner. (11:44 EPIE) CONSENTS: Image captured from scanner. (11:44 EPIE) *SUPPLY CHARGE SHEET: Image captured from scanner. (12:30 EPIE) ADMIN DIGITAL SIGNATURE: MD Cervantes Stanley. (11:42 SHAN) MD Cervantes Stanley. (12:56 SHAN) MD Cervantes Stanley. (13:23 SHAN) RESULTS RADIOLOGY: CT Brain WO Con Observe DT: Katelyn Nov 13, 2016 08:42, BR NONCONTRAST HEAD CT HISTORY: Headache. Nausea and vomiting. COMPARISON: None. TECHNIQUE: A noncontrast head CT is performed from the skull base to the skull vertex. FINDINGS: No parenchymal hemorrhage. No extraaxial hematoma. No midline shift. The basilar cisterns are pat ent. Brain volume is age appropriate. Cortical valadez white matter differentiation is preserved. The ventricles and sulci are patent and symmetric. Minimal chronic small vessel ischemic changes of the white matter. The calvarium is intact. Adequate aeration of the sinuses and mastoid air cells. &a-1R&a+25V*p+0X*k0424V*c202B*c15G*c2P*p-0X&a-25V&a+1R Name: Brittnee Oseguera : 1960 F56 MedRec: [id number] AcctNum: [id number] Prepared: Katelyn Nov 13, 2016 13:29 by Interface Page 12 of 14 pMD [facility] EMERGENCY RECORD IMPRESSION: No acute intracranial process. POS: [facility] . (11:28 SHAN) LABORATORY: Cardiac Profile w/CKMB & TropI Collection DT: Katelyn Nov 13, 2016 09:10, CKMB 1.0 ng/mL, Range (0-6.6), Troponin I 0.012 ng/mL, Range (< 0.028), Reference Range , 0.00 - 0.028 ng/mL Negative 0.029 - 0.29 ng/mL , Indeterminate Greater or Equal to 0.3 ng/mL Strongly suggests [place] , . (09:46 OLGA) Comprehensive Metabolic Panel Collection DT: Swatara Nov 13, 2016 09:10, Sodium 140 mmol/L, Range (136-145), *Potassium 3.3 - L mmol/L, Range (3.5-5.1), Chloride 99 mmol/L, Range (98-107), Carbon Dioxide 25 mmol/L, Range (22-29), Anion Gap 19 mmol/L, Range (10-20), BUN (Urea Nitrogen) 13 mg/dL, Range (9.8-20.1), Creatinine 1.02 mg/dL, Range (0.6-1.1), Estimated GFR-MDRD 56 , Reference Range for Estimated GFR: Greater than 90, mL/min/1.73 m2 NOTE: The MDRD equation has not been validated for use, with the elderly (over 70 years of age), women, patients with, serious comorbid condition or persons with extremes of body size, muscle, mass, or nutritional status. , *Glucose 124 - H mg/dL, Range (70-105), Calcium 9.7 mg/dL, Range (7.8-10.44), Bilirubin, Total 1.1 mg/dL, Range (0.2-1.2), *Protein, Total 8.8 - H g/dL, Range (6.0-8.3), NOTE: Plasma values are generally 0.3 to 0.5 g/dL higher than serum values, due to the presence of fibrinogen. , Albumin 4.9 g/dL, Range (3.5-5.0), *Globulin 3.9 - H g/dL, Range (2.4-3.5), Alb/Glob Ratio 1.3 g/dL, Range (1.2-2.2), Alkaline Phosphatase 76 U/L, Range (40-150), AST (SGOT) 20 U/L, Range (5-34), ALT (SGPT) 28 U/L, Range (0-55). (09:46 OLGA) CBC with Differential Collection DT: Swatara Nov 13, 2016 09:10, *White Blood Cell (WBC) Count 14.6 - H thou/uL, Range (4.8-10.8), *Red Blood Cell (RBC) Count 6.79 - H mill/uL, Range (4.20-5.40), *Hemoglobin 20.0 - H g/dL, Range (12.0-16.0), &a-1R&a+25V*p+0X*s1659A*c202B*c15G*c2P*p-0X&a-25V&a+1R Name: Brittnee Oseguera : 1960 6 MedRec: [id number] AcctNum: [id number] Prepared: Katelyn Nov 13, 2016 13:29 by Interface Page 13 of 14 pMD [facility] EMERGENCY RECORD *Hematocrit 59.4 - H %, Range (36.0-47.0), Mean Corpuscular Volume 87.4 fl, Range (81.0-99.0), Mean Corpuscular Hemoglobin 29.5 pg, Range (27.0-31.0), Mean Corpuscular HGB CONC 33.8 g/dL, Range (32.0-36.0), *RBC Distribution Width 11.1 - L %, Range (11.5-14.5), Platelet Count 304 thou/uL, Range (130-400), Mean Platelet Volume 8.2 fL, Range (7.4-10.4), Neutrophil 71 %, Range (42-75), *Band 4 - L %, Range (5-11), Lymphocytes 21 %, Range (21-51), Monocytes 4 %, Range (0-10), PLT Morphology Comment Appears Adequate , RBC Morphology Normal . (09:46 OLGA) Rojas: BEBE=NADEEM Ryan, Shiela JAIMES=NADEEM Moulton, Trinidad ROLDAN=LUIS CARLOS Alvarez, Fany ESPINOZA=MD Billy, Don &a-1R&a+25V*p+0X*t0591H*c202B*c15G*c2P*p-0X&a-25V&a+1R Name: Brittnee Oseguera : 1960 [facility] MedRec: [id number] AcctNum: [id number] Prepared: Katelyn Nov 13, 2016 13:29 by Interface Page 14 of 14 pMD [facility]TDD
== END 2016-11-13 12:28 | disposition short-term general hospital (02) ==
LOC: NAV ERS 08:36
DX: I16.1 Hypertensive emergency (principal)
CPT/HCPCS: 70450; 80053; 82553; 84484; 85025; 93005; 96361; 96374; 96375; 96376; J0360; J2270; J2405; J2550; J7050